=== PATIENT | female | born 1955 ===

== ENCOUNTER → 2017-06-07 | Outpatient (CLI) | payer OTHER | LOC: LAB SHORT 10:39 → LAB 10:39 | DX: R87.618 Other abnormal cytological findings on specimens from cervix uteri (principal); Z86.19 Personal history of other infectious and parasitic diseases | CPT/HCPCS: 88305 ==

== ENCOUNTER → 2019-09-11 | Outpatient (CLI) | payer MEDICARE | END | disposition home or self-care (01) | LOC: LAB SHORT 11:56 → LAB 11:56 | DX: L81.4 Other melanin hyperpigmentation (principal) | CPT/HCPCS: 88305 ==